=== PATIENT | male | born 1990 | race Caucasian/White ===

== ENCOUNTER 2019-03-30 07:58 | Outpatient (CLI) | payer OTHER ==
--- NOTE | 2019-03-30 14:43 | MRI Report ---
Reason: PAIN IN LEFT KNEE Procedure Date: 03/30/2019 Accession Number: [id number] / [id number] Procedure: MRI - Knee LT W/O CPT Code: FULL RESULT: EXAM: LEFT KNEE MRI WITHOUT CONTRAST EXAM DATE: 03/30/2019 09:15 AM. CLINICAL HISTORY: PAIN IN LEFT KNEE. COMPARISON: None. TECHNIQUE: Multiplanar, multisequence T1-weighted and fluid-sensitive sequences of the knee without contrast. Other: None. FINDINGS: Bones: No fractures or subluxations. No marrow edema. No bone lesions. Articular Cartilage: Unremarkable. Medial Meniscus: The medial meniscus is intact. Lateral Meniscus: The lateral meniscus is intact. Cruciate Ligaments: The anterior and posterior cruciate ligaments are intact. Collateral Ligaments: The medial collateral and lateral collateral ligamentous structures are intact. Tendons: The quadriceps, patellar, semimembranosus, and popliteus tendons are unremarkable. Musculature: No edema or fatty atrophy. Other: No effusion. No popliteal cyst. No loose bodies. The medial and lateral retinacula are intact. The subcutaneous tissues and fat pads are unremarkable. IMPRESSION: Negative for meniscus tear or internal derangement. RADIA
== END 2019-03-30 07:59 | disposition home or self-care (01) ==
LOC: DI 07:58
PROVIDERS: ATTEND General Practice
DX: M25.562 Pain in left knee (principal)

== ENCOUNTER 2020-08-15 07:35 | Outpatient (CLI) | payer OTHER ==
--- NOTE | 2020-08-15 11:12 | MRI Report ---
PROCEDURE: Lumbar Spine W/O INDICATIONS: DORSALGIA TECHNIQUE: Noncontrast sagittal T1 spin echo and T2 fast echo, sagittal STIR, axial T1 and T2 fast spin echo thr ough the lumbar spine. In cases with scoliosis, additional coronal T2 fast spin echo may be performe d. COMPARISON: None. FINDINGS: Image quality: Excellent. Alignment and Curvature: There is grade 1 retrolisthesis, 5 mm of L5 on S1. There is overall straigh tening of normal lumbar curvature. Bone Marrow: Marrow is of normal overall signal. No acute verteb ral body compression fractures. Spinal Cord: Conus medullaris terminates at the L1-L2 level. Visualized cord demonstrates normal si gnal and size. Paraspinous Soft Tissues: No paravertebral masses. Discs: Moderate desiccation is present L5-S1. L1-L2: No disc bulge, spinal stenosis or foraminal narrowing. L2-L3: Minimal disc bulge without spinal stenosis or foraminal narrowing.. L3-L4: Mild disc bulge with mild canal narrowing. No foraminal narrowing. Mild facet hypertrophy. M inimal epidural lipomatosis. L4-L5: Mild disc bulge with mild canal narrowing. Minimal bilateral foraminal narrowing. L5-S1: Mild disc bulge without spinal stenosis. Moderate right and moderate to severe left foramina l narrowing with notable narrowing through the subarticular recess. IMPRESSION: 1. Early degenerative changes most notable at L5-S1 as above. Reviewed by: Lola Riley MD on 08/15/2020 11:11 AM PST Approved by: Lola Riley MD on 08/15/2020 11:11 AM PST Station ID: [id number]
== END 2020-08-15 07:36 | disposition home or self-care (01) ==
LOC: DI 07:35
PROVIDERS: ATTEND Student in an Organized Health Care Education/Training Program
DX: M54.9 Dorsalgia, unspecified (principal); M51.27 Other intervertebral disc displacement, lumbosacral region

== ENCOUNTER 2021-09-27 04:43 | Emergency (ER) | payer OTHER ==
[2021-09-27] MEDS: CHERRY SYRUP 10 ML UDC PO ONE (05:10)
[2021-09-27] MEDS: DEXAMETHASONE 10 MG/ML VIAL PO STA (05:10)
[2021-09-27] MEDS: FAMOTIDINE 20 MG TABLET PO STA (05:10)
--- NOTE | 2021-09-27 05:31 | ED Physician Documentation ---
History of Present Illness - Stated complaint Stated Complaint: ALERGIC REACTION - Chief complaint Chief Complaint: Wound - Additonal information Additional information: Patient is 31-year-old male presenting to the emergency department with concern for allergic reaction. Endorses for shortness of breath and a rash that began approximately 20 minutes prior to arrival. No known allergies or history of anaphylactic reactions. Reports sushi last night for dinner but states he has had this in the past without incident. Took a Benadryl and ibuprofen prior to arrival. Past medical significant for chronic back pain. Review of Systems Ten Systems: 10 systems reviewed and negative Constitutional: denies: Fever Eyes: denies: Loss of vision Ears: denies: Loss of hearing Nose: denies: Rhinorrhea / runny nose Throat: denies: Dental pain / toothache Cardiac: denies: Chest pain / pressure Respiratory: reports: Dyspnea GI: denies: Abdominal Pain : denies: Dysuria Skin: reports: Rash PD PAST MEDICAL HISTORY - Past Medical History Past Medical History: No - Past Surgical History Past Surgical History: No - Present Medications Home Medications: Ambulatory Orders Medication Instructions Recorded Confirmed EPINEPHrine [Epinephrine] 0.3 mg IJ ONCE PRN #1 dis.syr 09/27/21 - Allergies Allergies/Adverse Reactions: Allergies Allergy/AdvReac Type Severity Reaction Status Date / Time No Known Drug Allergies Allergy Verified 09/27/21 04:51 - Social History Does the pt smoke?: No Smoking Status: Never smoker Does the pt drink ETOH?: No Does the pt have substance abuse?: No - Immunizations Immunizations are current?: Yes - POLST Patient has POLST: Yes PD ED PE NORMAL - Vitals Vital signs reviewed: Yes - General General: Alert and oriented X 3 - HEENT HEENT: Atraumatic, PERRL, Moist mucous membranes, Pharynx benign - Neck Neck: Supple, no meningeal sign, No bony TTP, No adenopathy, No JVD - Cardiac Cardiac: RRR, No murmur, No gallop, No rub, Strong equal pulses - Respiratory Respiratory: No respiratory distress, Clear bilaterally - Abdomen Abdomen: Normal bowel sounds, Non tender - Male Male : Deferred - Rectal Rectal: Deferred - Derm Derm: Other (Urticaria prominently on the upper extremities, back and chest.) - Extremities Extremities: No deformity - Neuro Neuro: Alert and oriented X 3 - Psych Psych: Normal mood Results - Vitals Vitals: Vital Signs - 24 hr 09/27/21 09/27/21 09/27/21 04:47 05:30 05:50 Temperature 36.2 C L Heart Rate 93 72 80 Respiratory 20 15 16 Rate Blood Pressure 163/95 H 145/94 H 145/80 H O2 Saturation 100 97 99 Oxygen O2 Source Room air PD MEDICAL DECISION MAKING - ED course Complexity details: re-evaluated patient, d/w patient ED course: Patient is 31-year-old male presenting to the emergency department with urticaria and shortness of breath. Clear aeration in all lung figueroa with no active wheezing on arrival to the emergency department. Otherwise hemodynamically stable. Was given Decadron and Pepcid in the emergency department. Stated he had taken Benadryl prior to arrival. Was monitored for several hours with near complete resolution of all of his symptoms. Discussed nature of allergic reactions with the patient as well as with his significant other who is present at bedside. I did discuss careful follow-up with primary care for allergen testing as appropriate. I will discharge with prescription for EpiPen and discussed its use and indications. Otherwise clear return precautions and follow-up instructions were given prior to discharge. Departure - Departure Disposition: 01 Home, Self Care Clinical Impression: Allergic reaction Instructions: ED Allergic Reaction General Other Prescriptions: EPINEPHrine [Epinephrine] 0.3 mg IJ ONCE PRN #1 dis.syr PRN Reason: Anaphylaxis Comments: Thank you for allowing us to care for you today at [facility]. Prescription was sent electronically to [facility] in [place]. You presented to the emergency department today with signs and symptoms consistent with an acute allergic reaction. I am glad you are feeling better at this time. I have sent a prescription for an EpiPen for Your use as needed. Please do follow-up with your primary care doctor soon as possible in order to discuss your ER visit. If it anytime you have any new or worsening symptoms, Please do not hesitate to return.
[2021-09-27 06:06] VITALS: BP 145/77
== END 2021-09-27 06:06 | disposition home or self-care (01) ==
LOC: ED 04:43
DX: T78.40XA Allergy, unspecified, initial encounter (principal)
CPT/HCPCS: 99282; 99284; A9270

== ENCOUNTER 2021-10-01 05:58 | Emergency (ER) | payer OTHER ==
[2021-10-01] MEDS ORDERED: predniSONE 20 MG TABLET PO STA (06:32)
--- NOTE | 2021-10-01 06:38 | ED Physician Documentation ---
PD HPI SKIN - Stated complaint Stated Complaint: ALLERGIC REACTION - Chief complaint Chief Complaint: Allergic Rx - History obtained from History obtained from: Patient - Additional information Additional information: Patient is a 31-year-old male presenting for evaluation after allergic reaction. He woke up this morning around 4:00 with a rash to his face and his back. He took a Benadryl. He then started feeling short of breath and chest tightness. He waited for some time to see if his symptoms would improve after Benadryl but they did not and he injected himself with his EpiPen. He was seen here on September 27 with similar symptoms at which time he was prescribed an EpiPen. Prior to this he denies previous allergic reactions. He currently denies of shortness of breath and reports the rash has resolved.He denies any new known exposures such as medications, detergents or soaps, pets. He is awaiting an appointment with his primary care doctor through the [facility]. Review of Systems Constitutional: denies: Fever Nose: denies: Congestion Throat: denies: Swollen tonsils Cardiac: denies: Chest pain / pressure Respiratory: reports: Dyspnea (Chest tightness), Other GI: denies: Abdominal Pain, Vomiting : denies: Dysuria Skin: reports: Rash (Resolved) Musculoskeletal: denies: Back pain Neurologic: denies: Headache PD PAST MEDICAL HISTORY - Past Medical History Past Medical History: No - Past Surgical History Past Surgical History: No - Present Medications Home Medications: Ambulatory Orders Medication Instructions Recorded Confirmed EPINEPHrine [Epinephrine] 0.3 mg IJ ONCE PRN #1 dis.syr 09/27/21 10/01/21 Cetirizine [ZyrTEC] 10 mg PO DAILY 30 Days #30 tablet 10/01/21 EPINEPHrine [Epinephrine] 0.3 mg IJ ONCE PRN #2 dis.syr 10/01/21 predniSONE [Deltasone] 40 mg PO DAILY 4 Days #8 tablet 10/01/21 - Allergies Allergies/Adverse Reactions: Allergies Allergy/AdvReac Type Severity Reaction Status Date / Time No Known Drug Allergies Allergy Verified 09/27/21 04:51 - Social History Does the pt smoke?: No Smoking Status: Never smoker Does the pt drink ETOH?: Yes Does the pt have substance abuse?: No - Immunizations Immunizations are current?: Yes - POLST Patient has POLST: Yes PD ED PE NORMAL - General General: Alert and oriented X 3, No acute distress, Well developed/nourished - HEENT HEENT: Atraumatic, PERRL, Moist mucous membranes, Pharynx benign, Other - Neck Neck: Supple, no meningeal sign (No oral swelling, normal speech) - Cardiac Cardiac: RRR, No murmur, Strong equal pulses - Respiratory Respiratory: No respiratory distress, Clear bilaterally - Abdomen Abdomen: Normal bowel sounds, Soft, Non tender - Derm Derm: Normal color, Warm and dry - Extremities Extremities: No edema - Neuro Neuro: Alert and oriented X 3, Normal speech - Psych Psych: Normal mood Results - Vitals Vitals: Vital Signs - 24 hr 10/01/21 10/01/21 06:03 08:02 Temperature 36.1 C L Heart Rate 90 74 Respiratory 18 16 Rate Blood Pressure 178/70 H 119/70 O2 Saturation 98 99 Oxygen O2 Source Room air PD MEDICAL DECISION MAKING - ED course ED course: Patient with allergic reaction And use of EpiPen prior to arrival. On arrival, symptoms have improved. Plan to observe for 2 hours post epi administration. Patient signed out to oncoming provider, Dr. Maya. No current signs of anaphylaxis or allergic reaction. As patient has had 2 episodes in the last week, will give short course of oral steroids and also recommend daily antihistamine. Departure - Departure Disposition: 01 Home, Self Care Clinical Impression: Acute allergic reaction Qualifiers: Encounter type: initial encounter Qualified Code(s): T78.40XA - Allergy, unspecified, initial encounter Condition: Stable Instructions: ED Allergic Reaction General Other Prescriptions: predniSONE [Deltasone] 40 mg PO DAILY 4 Days #8 tablet EPINEPHrine [Epinephrine] 0.3 mg IJ ONCE PRN #2 dis.syr PRN Reason: Allergy Symptoms Cetirizine [ZyrTEC] 10 mg PO DAILY 30 Days #30 tablet Comments: Bob you were evaluated after an allergic reaction. As this is the second episode you have had this week, I have prescribed a short course of steroids which have been sent to the [facility] pharmacy in [place]. I have also sent a refill for you at the EpiPen. Please follow-up with your primary care doctor as you may need allergy testing. Please carry an EpiPen with you at all times.If your symptoms return or worsen in any way please consider returning to the emergency department. Discharge Date/Time: 10/01/21 08:05
[2021-10-01] MEDS ORDERED: CETIRIZINE 10 MG TABLET PO STA (07:04)
--- NOTE | 2021-10-01 07:48 | ED Physician Documentation ---
ED Addendum - Addendum Addendum: 10/01/21 07:47The patient was reexamined at approximately 745. He has not had any return of allergy symptoms. At his been adequate time for the appendectomy to be wearing off without any recurrent symptoms and so he should be safe for discharge at this point. Disposition: The patient is discharged home from the emergency department stable. Diagnosis: Acute allergic reaction
[2021-10-01 08:05] VITALS: BP 119/70
== END 2021-10-01 08:05 | disposition home or self-care (01) ==
LOC: ED 05:58
DX: T78.40XA Allergy, unspecified, initial encounter (principal)
CPT/HCPCS: 99282; 99283; A9270; J7512